=== PATIENT | male | born 1985 | race African-American/Black ===

== ENCOUNTER 2018-09-13 19:35 | Emergency (ER) | payer OTHER ==
[2018-09-13] MEDS: IBUPROFEN 800 MG TAB PO (20:54)
== END 2018-09-13 23:12 | disposition home or self-care (01) ==
LOC: FTE 19:35
DX: S00.83XA Contusion of other part of head, initial encounter (principal); Y04.0XXA Assault by unarmed brawl or fight, initial encounter
CPT/HCPCS: 70110; 99283-25

== ENCOUNTER 2018-09-14 17:34 | Emergency (ER) | payer SELFPAY, OTHER | END 2018-09-14 19:35 | disposition left against medical advice (07) | LOC: FTE 17:34 | DX: Z53.21 Procedure and treatment not carried out due to patient leaving prior to being seen by health care provider (principal) ==

== ENCOUNTER 2018-09-15 01:45 | Emergency (ER) | payer OTHER | END 2018-09-15 02:22 | disposition home or self-care (01) | LOC: FTE 01:45 | DX: K08.89 Other specified disorders of teeth and supporting structures (principal) | CPT/HCPCS: 99282; Z7502 ==